=== PATIENT | female | born 1970 | race Two or more races ===

== ENCOUNTER 2025-05-18 15:26 | Inpatient (IN) | payer OTHER ==
[~2025-05-18] VITALS: Ht 157.5 cm; Wt 59.4 kg
--- NOTE | 2025-05-18 16:55 | NUR ---
PTE ALERTA Y ORIENTADA X3 REFIERE VENIR POR DOLOR EN AREA DEL PECHO, PARTE IZQUIERDA DE HOMBRO Y NANETTE Y BELEN SENTIDO EL PRASHANT ACELERADO EN LA NOCHE DE SUSAN. SE FRANKO S/V, SE REALIZA EKG Y SE PRESENTA A DRA. HULL. SE UBICA A PTE.
[2025-05-18 18:28] LABS: BASO % 0.7 % (0.1-1.2); EOS # 0.34 (0.04-0.54); EOS % 4.2 % (0.7-7.0); LYMPH # 2.35 (1.18-3.74); LYMPH % 29.1 % (19.3-53.1); MEAN PLATELET VOLUME 9.40 fl (9.4-12.4); MONO # 0.37 (0.24-0.82); MONO % 4.6 % (4.7-12.5); NEUT # 4.95 (1.56-6.13); NEUT % 61.3 % (34.0-71.1); RED CELL DISTRIBUTION WIDTH 12.9 % (11.6-14.4)
--- NOTE | 2025-05-18 18:29 | NUR ---
SE ORIENTA A PTE SOBRE TX MEDICO, LA PTE REFIERE ENTENDER Y ACEPTAR. SE RECOLECTAN MUESTRAS DE LAB PARAM ORDEN MEDICA BAJO MEDIDAS ASEPTICAS.
[2025-05-18 19:01] LABS: ALT/SGPT 18.0 U/L (12-78); AST/SGOT 12.0 U/L (15-37); BILIRUBIN TOTAL 0.43 mg/dL (0.3-1.2); BUN CREA RATIO 12.0 (7.0-25.0); CREATININE SERUM 0.65 mg/dL (0.55-1.02); GFR 95.35; GLOBULINA 3.4 G/DL (2.4-3.5); GLUCOSE FASTING 128.0 mg/dL (65-100); OSMOLALITY SERUM 281.0 MOSM/KG (275-295)
[2025-05-18 19:02] LABS: COVID-19 AG NEGATIVE (NEGATIVE)
[2025-05-18] MEDS ORDERED: TICAGRELOR 90 MG TABLET PO ONE (19:30)
[2025-05-18] MEDS ORDERED: ASPIRIN 325 MG TABLET PO ONE (19:30)
[2025-05-18] MEDS ORDERED: ATORVASTATIN CALCIUM 40 MG TABLET PO ONE (19:30)
[2025-05-18] MEDS ORDERED: NITROGLYCERIN 0.4 MG TAB.SUBL SL ONE (19:30)
[2025-05-18] MEDS ORDERED: NITROGLYCERIN IN 5 % DEXTROSE 250 ML IV SCH (19:45)
[2025-05-18] MEDS ORDERED: ENOXAPARIN SODIUM 60 MG/0.6 ML SYRINGE SUBCUTANEO ONE (20:00)
[2025-05-18 20:38] LABS: INR 0.99
[2025-05-18] MEDS ORDERED: CLOPIDOGREL BISULFATE 75 MG TABLET PO SCH (20:52)
[2025-05-18] MEDS ORDERED: ASPIRIN 81 MG TABLET.EC PO SCH (20:52)
[2025-05-18] MEDS ORDERED: ATORVASTATIN CALCIUM 40 MG TABLET PO SCH (20:53)
[2025-05-18] MEDS ORDERED: PANTOPRAZOLE SODIUM 40 MG in 0.9 % SODIUM CHLORIDE 8 ML IV PUSH SCH (20:55)
[2025-05-18] MEDS ORDERED: TICAGRELOR 90 MG TABLET PO SCH (20:55)
[2025-05-18 21:00] LABS: URINE APPEARANCE Clear; URINE BILIRRUBIN Negative (NEGATIVE); URINE BLOOD Negative; URINE COLOR Yellow; URINE GLUCOSE Negative (NEGATIVE); URINE KETONE Trace (NEGATIVE); URINE LEUKOCYTE Trace; URINE NITRATE Negative; URINE PROTEIN Negative (NEGATIVE); URINE UROBILINOGEN 0.2 E.U./dl
[2025-05-18] MEDS ORDERED: ENOXAPARIN SODIUM 60 MG/0.6 ML SYRINGE SUBCUTANEO SCH (21:00)
[2025-05-18] MEDS ORDERED: MORPHINE SULFATE 2 MG/ML CARTRIDGE IV PRN (21:00)
--- NOTE | 2025-05-18 21:00 | NUR ---
SE REICBE PACIENTE POR PERSONAL DE AREA DE FAST TRTACK POR DOLOR DE PECHO Y TROPONIAS ELEVADAS. SE REALIZAN EXTRACCION DE MUESTRAS Y CANALIZACION BAJO MEDIDAS ASEPTICAS. SE CONECTA A MONITOREO CARDIACO Y OXIMETRIA DE PULSO. SE ADMINISTRA MEDICAMENTO PARAM ORDEN MEDICA. SE COLOCA TRIDIL 1 ML/HR DEBIDO POR B/P DE PACIENTE.
[2025-05-18 21:03] LABS: URINE BACTERIA 390.0 uL (0.0-1933); URINE CAST 0.00 uL (0.0-1.40); URINE EPITHELIAL CELLS 17.0 uL (0.0-38.8); URINE RBC 17.3 uL (0.0-20.8); URINE WBC 8.9 uL (0.0-23.2)
[2025-05-18 23:08] VITALS: BP 98/67; O2SAT 100
[2025-05-18 23:14] LABS: ABG PH 7.427 (7.35-7.45); BICARBONATE 23.8 mmol/l (23-25); o2 32 %
[2025-05-18 23:17] LABS: CHOL HDL RATIO 2.8 (0-5.0); HDL 77.0 mg/dl (40-60); LDL 109.0 mg/dl (0-130); VLDL 26.0 (0-39)
[2025-05-18 23:18] LABS: ABG PO2 112.0 mmHg (80-100)
[2025-05-18 23:21] LABS: TSH 3.64 uIU/mL (0.358-3.74)
[2025-05-18 23:42] VITALS: BP 98/67; O2SAT 100
[2025-05-19] VITALS (9 sets, daily range): BP systolic 100–107; BP diastolic 60–65; O2SAT 98–100
[2025-05-19] MEDS ORDERED: NITROGLYCERIN IN 5 % DEXTROSE 250 ML IV SCH (07:45)
[2025-05-20 00:52] VITALS: O2SAT 98
[2025-05-20 02:28] VITALS: BP 110/67; O2SAT 100
[2025-05-20 06:36] VITALS: O2SAT 99
[2025-05-20 06:59] LABS: CHOL HDL RATIO 2.8 (0-5.0); HDL 71.0 mg/dl (40-60); LDL 102.0 mg/dl (0-130); VLDL 26.0 (0-39)
[2025-05-20] MEDS ORDERED: METOPROLOL SUCCINATE 25 MG TAB.SR.24H PO SCH (09:00)
[2025-05-20 09:41] VITALS: O2SAT 99
[2025-05-20 12:00] VITALS: BP 113/66; O2SAT 100
[2025-05-20 12:24] VITALS: O2SAT 99
== END 2025-05-20 16:02 | disposition home or self-care (01) | DRG 282 ==
LOC: ER 15:58 → MEDJ 21:18
PROVIDERS: General Practice; Preventive Medicine Public Health & General Preventive Medicine; ADMIT Student in an Organized Health Care Education/Training Program; ATTEND Student in an Organized Health Care Education/Training Program
PROC: B24BZZZ Ultrasonography of Heart with Aorta (ICD-10-PCS; 2025-05-18)
PROC: 4A12X4Z Monitoring of Cardiac Electrical Activity, External Approach (ICD-10-PCS; principal; 2025-05-19)
PROC: 4A12XM4 Monitoring of Cardiac Stress, External Approach (ICD-10-PCS; 2025-05-19)
DX: I21.4 Non-ST elevation (NSTEMI) myocardial infarction (principal); I50.9 Heart failure, unspecified; I25.10 Atherosclerotic heart disease of native coronary artery without angina pectoris